=== PATIENT | female | born 1985 | race Caucasian/White ===

== ENCOUNTER → 2018-02-28 23:23 | Outpatient (CLI) | payer MEDICAID, SELFPAY ==
[2018-03-01 01:03] LABS: Chlamydia Trachomatis by PCR Negative (Negative); Neisserai gonorrhoeae by PCR Negative (Negative); Probe Check PASS; Sample Adequacy Control PASS; Specimen Processing Control PASS
[2018-03-03 14:06] LABS: HPV Reflexed? NOT INDICATED
== END ==
PROVIDERS: Visit Provider Obstetrics & Gynecology
DX: Z12.4 Encounter for screening for malignant neoplasm of cervix (principal); Z11.3 Encounter for screening for infections with a predominantly sexual mode of transmission
CPT/HCPCS: 87491; 87591; 88175; G0145

== ENCOUNTER 2018-03-17 06:20 | Day surgery (SDC) | payer MEDICAID, SELFPAY ==
[2018-03-17 06:34] VITALS: BP 120/76; PULSE 83; RESP 16; TEMP 36.8; O2SAT 99; BMI 25.6
--- NOTE | 2018-03-17 07:40 | PCM.DC.D&C ---
Discharge Diet: No Restrictions Discharge Activity: May not drive while taking narcotic pain medications., May Shower, May Take a Tub Bath May resume sexual activity in: 1-2 weeks Call your doctor if you observe: Fever of 101 or Higher, Using more than one pad per hour, Uncontrolled pain Allergies/Adverse Reactions: Allergies No Known Allergies Allergy (Verified 03/16/18 10:33) Medications to take at Discharge Levothyroxine [Synthroid] 50 mcg PO DAILY 12/31/14 Vits [Prenatabs FA] 1 tablet PO DAILY 12/31/14 Acetaminophen/Codeine #3 [Tylenol#3] 1 - 2 tablet PO Q6H PRN PRN 2 Days #10 tablet 03/17/18 The following prescriptions were given: Acetaminophen/Codeine #3 [Tylenol#3] 1 - 2 tablet PO Q6H PRN PRN 2 Days #10 tablet PRN Reason: Mod-Severe Pain (4-10/10) Primary Care Physician: Justus Valdivia MD [Primary Care Provider] - Please Follow Up With: Jenna Browne MD - [phone] When: in 2 wk for postop check up as planned Proposed Discharge Date: 03/17/18
--- NOTE | 2018-03-17 07:55 | POC_PTH ---
PATIENT: JJ WREN [place] [facility] [id number] AGE/SX: 32/F ROOM: RE03/17/[address]: Dr. Jenna Browne MD : [id number] BED: DIS: 03/17/2018 SPEC #: [id number] RECD: 03/17/18 08:42 STATUS: KELLEE BESSIE #: [id number] MADELINE: 03/17/18 07:[address]: Jenna Browne DEPT: SURGICAL PATHOLOGY RECD BY: Cruz Trimble ENTERED: 03/17/18 09:11 SP TYPE: PROD CONC OTHR DR: Dr. Justus Valdivia MD Tissues: Product of conception, NOS Procedures: Surgery Specimen Level IV HEADER OPERATION: Dilation and curettage, suction PRE-OP DIAGNOSIS: Missed TISSUE SUBMITTED: Products of conception MICROSCOPIC DIAGNOSIS Products of conception: [place], gestational endometrium and immature chorionic villi (products of conception). SJ:huang 03/18/18 MICROSCOPIC DESCRIPTION Slides are reviewed. GROSS DESCRIPTION Received in fixative is one container labeled with the patient's name and designated products of conception. The specimen consists of multiple irregular fragments of pink-red soft tissue that in aggregate measure 7 x 6 x 2 cm. No tissue is identified. Asic Engineer tissue is submitted in two cassettes. / SJ:huang 03/17/18 TC:5 CPT: 09775
[2018-03-17] MEDS: Ondansetron 4 MG/2 ML Vial (08:00)
[2018-03-17] MEDS: Lubricating Jelly 60 GM Tube 30 GM TOPICAL (08:03)
--- NOTE | 2018-03-17 08:17 | OP.PCM_ITS ---
Operative Report Date of Procedure: 03/17/18 Date of Procedure: 03/17/18 - suction D and C Pre-Operative Diagnosis: Missed , 9 wk EGA Post-Operative Diagnosis: Same Surgery/Procedure Performed: Suction D and C Anesthesia: Honey Quijano CRNA Estimated Blood Loss (mL): Minimal Complications: none. Drains: None. Red Reyna used to drain bladder prior to case Fluids Replaced: LR Findings: Uterus sounds to 10 cm Parous appearing cervix noted. Products of conception consistent with ultrasound findings collected. PATH: Products of conception, uterine curettings. Narrative Account: After the risks, benefits, alteratives of the procedure were reviewed with the patient informed consent was obtained. The patient was taken to the OR with IV running and placed in dorsal supine position on the operating table. She was given general anesthesia, and then repositioned to the dorsal lithotomy position and was prepped and draped in the usual sterile fashion. The bladder was drained with a red Reyna catheter. A Graves speculum was placed, the cervix identified and the anterior lip grasped with a single toothed tenaculum. The cervix was then easily dilated to allow admission of an 9 mm curved suction curette tip. The suction curette was then placed to the uterine fundus , suction applied, and POC were obtained. After most of the products of conception were removed a sharp curettage was performed and good Crei was noted in all quadrants of the uterus. One final pass was conducted with the suction curette and the remaining products of conception and uterine curettings were removed. A sponge stick was then used to remove any remaining tissue and blood from the upper vagina and cervix . All instruments were then removed from the vagina and cervix. Excellent hemostasis was noted. The patient was awakened from general anesthesia and then transferred to her recovery room bed in stable condition after tolerating the procedure well. Sponge , instrument counts were correct x two. Medications given intraoperatively included: Toradol 30 mg IV x one. For a complete listing of medications given intraoperatively, please see the anesthesia record.
[2018-03-17 08:20] VITALS: BP 103/59; BP 120/76; PULSE 75; RESP 16; TEMP 36.1; O2SAT 95
[2018-03-17 08:25] VITALS: BP 120/76; BP 98/59; PULSE 65; RESP 16; O2SAT 96
[2018-03-17 08:30] VITALS: BP 120/76; BP 95/57; PULSE 62; RESP 16; O2SAT 96
[2018-03-17 08:35] VITALS: BP 110/64; BP 120/76; PULSE 75; RESP 16; TEMP 36.2; O2SAT 100
[2018-03-17 09:39] VITALS: BP 120/76
== END 2018-03-17 09:41 | disposition home or self-care (01) ==
LOC: SDC 06:21
PROVIDERS: Family Provider Family Medicine; PCP Family Medicine; Visit Provider Obstetrics & Gynecology
PROC: (CPT 59820; principal; 2018-03-17 07:45)
DX: O02.1 Missed abortion (principal); E06.9 Thyroiditis, unspecified; Z79.899 Other long term (current) drug therapy
CPT/HCPCS: 01965; 59820; 88305; J7120; J2405

== ENCOUNTER → 2018-08-26 10:22 | Outpatient (CLI) | payer MEDICAID, SELFPAY ==
[2018-08-26 14:15] LABS: Chlamydia Trachomatis by PCR Negative (Negative); Neisserai gonorrhoeae by PCR Negative (Negative); Probe Check PASS; Sample Adequacy Control PASS; Specimen Processing Control PASS
== END ==
PROVIDERS: Visit Provider Obstetrics & Gynecology
DX: Z11.3 Encounter for screening for infections with a predominantly sexual mode of transmission (principal)
CPT/HCPCS: 87491; 87591

== ENCOUNTER → 2018-09-13 10:42 | Outpatient (CLI) | payer MEDICAID, SELFPAY ==
[2018-09-13 13:57] LABS: Absolute Lymphocyte Count 2.39 X10^3/ul (0.83-4.51); Absolute Neutrophil Count 10.3 X10^3/uL (2.0-7.7); Basophil# 0.01 X10^3/uL; Basophil% 0.1 % (0-1); Color, Urine Yellow (Yellow); Eosinophil# 0.06 X10^3/uL; Eosinophils% 0.4 % (0-5); Glucose, Dipstick Normal (Normal); Hematocrit 43.4 % (37-47); Hemoglobin 14.6 g/dl (12.0-15.0); Ketone-Dipstick Negative (Negative); Leukocyte Esterase-Dipstick Negative /ul (Negative); Lymphocyte # 2.39 X10^3/ul (4.0); Lymphocyte % 17.9 % (19-41); Mean Corp Hgb Conc 33.6 g/gl (32-36); Mean Corpuscular Hgb 30.5 pg (27.0-32.0); Mean Corpuscular Volume 90.6 fL (81-99); Mean Platelet Vol. 10.6 fl (6.2-12.0); Monocyte# 0.59 X10^3/uL; Monocyte% 4.4 % (0-10); Neutrophil # 10.28 X10^3/uL (2.7-7.7); Neutrophil % 76.9 % (47-70); Nitrite-Dipstick Negative (Negative); Occult Blood-Urine Negative /ul (Negative); Platelet Count 209 K/mm3 (150-450); Protein-Dipstick Negative (Negative); RBC Distribution Width CV 12.8 % (11.6-14.6); Red Blood Count 4.79 M/mm3 (4.2-5.4); Specific Gravity, Urine 1.005 (1.002-1.030); Urine Bilirubin Dipstick Negative (Negative); Urine Clarity Clear (Clear); Urine Urobilinogen Normal (Normal); White Blood Count 13.4 K/mm3 (4.4-11.0)
[2018-09-13 14:07] LABS: POSITIVE COUNT NO; POSITIVE DIFFERENTIAL NO; POSITIVE MORPHOLOGY NO
[2018-09-13 14:19] LABS: Free T3 2.4 pg/mL (2.18-3.98); T4 Free Direct 1.08 ng/dL (0.76-1.46); Thyroid Stim Hormone (TSH) 1.77 uIU/mL (0.358-3.74)
[2018-09-13 14:59] LABS: HIV - WCH Non-Reactive (Nonreactive); Rubella IgG 64.8 IU/mL
[2018-09-14 10:22] LABS: HEPATITIS B SURFACE AG Negative (Negative); Hep C Antibodies <0.1 s/co ratio (0.0-0.9)
[2018-09-16 01:35] LABS: Prenatal RPR NONREACTIVE (NONREACTIVE)
== END ==
PROVIDERS: Visit Provider Obstetrics & Gynecology
DX: Z34.81 Encounter for supervision of other normal pregnancy, first trimester (principal)
CPT/HCPCS: 36415; 81002; 84439; 84443; 84481; 85025; 86703; 86762; 86803; 87340

== ENCOUNTER → 2018-12-27 09:58 | Outpatient (CLI) | payer MEDICAID, SELFPAY ==
[2018-12-27 11:14] LABS: Hematocrit 40.2 % (37-47); Hemoglobin 13.2 g/dl (12.0-15.0); Mean Corp Hgb Conc 32.8 g/gl (32-36); Mean Corpuscular Volume 94.4 fL (81-99); Mean Platelet Vol. 10.6 fl (6.2-12.0); Platelet Count 164 K/mm3 (150-450); RBC Distribution Width SD 44.7 fl (35.1-43.9); Red Blood Count 4.26 M/mm3 (4.2-5.4)
[2018-12-27 11:15] LABS: Scan Indicated on CBC? Y/N NO
[2018-12-27 11:16] LABS: Glucose Challenge Gest 1H 50g 120 mg/dL (70-140)
== END ==
PROVIDERS: Visit Provider Obstetrics & Gynecology
DX: Z34.83 Encounter for supervision of other normal pregnancy, third trimester (principal)
CPT/HCPCS: 82950; 85027

== ENCOUNTER → 2019-02-15 | Outpatient (CLI) | payer MEDICAID, SELFPAY | END | disposition home or self-care (01) | LOC: LABSPEC 15:48 | PROVIDERS: Visit Provider Obstetrics & Gynecology | DX: Z36.85 Encounter for antenatal screening for Streptococcus B (principal) | CPT/HCPCS: 87081 ==

== ENCOUNTER 2019-03-13 06:54 | Inpatient (IN) | payer MEDICAID, SELFPAY ==
[2019-03-13] MEDS: Lactated Ringers 1,000 ML 50 ML IV ×3 (07:58→16:07)
[2019-03-13] MEDS: Oxytocin 30 units/NS 500 ml 30 UNITS/500 ML IV.SOLN IV (07:58)
[2019-03-13 08:07] LABS: Absolute Lymphocyte Count 2.94 X10^3/ul (0.83-4.51); Absolute Neutrophil Count 8.2 X10^3/uL (2.0-7.7); Basophil# 0.01 X10^3/uL; Basophil% 0.1 % (0-1); Eosinophil# 0.05 X10^3/uL; Eosinophils% 0.4 % (0-5); Hematocrit 40.2 % (37-47); Lymphocyte # 2.94 X10^3/ul (4.0); Lymphocyte % 24.5 % (19-41); Mean Corp Hgb Conc 34.8 g/gl (32-36); Mean Corpuscular Hgb 31.6 pg (27.0-32.0); Mean Corpuscular Volume 90.7 fL (81-99); Mean Platelet Vol. 11.2 fl (6.2-12.0); Monocyte# 0.76 X10^3/uL; Monocyte% 6.3 % (0-10); Neutrophil # 8.17 X10^3/uL (2.7-7.7); POSITIVE COUNT NO; POSITIVE DIFFERENTIAL NO; POSITIVE MORPHOLOGY NO; Platelet Count 162 K/mm3 (150-450); RBC Distribution Width CV 13.4 % (11.6-14.6); Red Blood Count 4.43 M/mm3 (4.2-5.4)
[2019-03-13 08:12] VITALS: BMI 28.3
--- NOTE | 2019-03-13 08:19 | PCM.PN.BLA ---
Progress Note LABOR INDUCTION 39+ wk AB 1 female feeling a few UCs Spont UCs noted at q 5-7 mins A and O NAD AVSS Pitocin at 2 mIU/min EFM: 130-140s avg variability. Accels. category I UCs q 5-7 min A/P: Induction 39+ wk EGA continue pitocin AROM planned.
--- NOTE | 2019-03-13 08:39 | HP.PCM_ITS ---
History and Physical Date of Admission: 03/13/19 34 yo female Ab2 with EDC 03/19/2019 by 13 weeks 2 days Ultrasound, presents to Labor and Delivery. care remarkable for - POLYHYDRAMNIOS 26 cm at 30+ wk EGA, Hypothyroidism, H/O delivery at 33 wk Twin IUP, Prior twin Pertinent Past Medical History: Allergies: No Known Drug Allergies Medications: During - Synthroid 50 mcg tablet; + DHA 28 mg iron- 975 mcg- 200 mg combo pack; Prilosec OTC 20 mg tablet,delayed release; Anusol-HC 2.5 % topical cream with perineal applicator Review of Systems: Non-contributory PHYSICAL EXAMINATION General Appearence: 34 yo female in no acute distress Vital Signs: AF, VSS Heart: RRR without rubs or gallops Lungs: CTA x 2 Breasts: deferred Abdomen: gravid Pelvis: Cervix: Presentation: cephalic Station: Fetus: Size: AGA Movement: present Heart: present Impression /Plan: Intrauterine . Preparations in progress for delivery. See Progress Notes for Changes: 03/13/19 Physician's Signature: Date: 03/13/19 08:38 JJ WREN [id number] REV. 06/04 O
--- NOTE | 2019-03-13 13:15 | PCM.PN.BLA ---
Progress Note LABOR INDUCTION 39 1/7 wk poly feeling some UCs. Some into back AVSS pitocin at 6 mIU/min EFM 130-140s avg variability. Accels noted. Occasional variable with quick return in less than 10 sec UCs q 1-5 mins, irregular CX: 2/75/-2 midposition to sl anterior, softer. A/P: 39 1/7 wk induction poly. AROM now. Continue Pitocin EFM category I tracing, some intermittent tracing with inc FM noted on monitor. Continue Pitocin pain med prn Anticipate
[2019-03-13] MEDS: fentaNYL-bupivacaine (epidural) 100 ML BAG EPIDURAL (15:57)
[2019-03-13] MEDS: Ondansetron 4 MG/2 ML Vial IV (17:26)
[2019-03-13] MEDS: Oxytocin 30 units/NS 500 ml 30 UNITS/500 ML IV.SOLN 334 UNITS IV (19:15)
--- NOTE | 2019-03-13 19:26 | PCM.DCVAG ---
Discharge Diet: No Restrictions Discharge Activity: May Shower, May Take a Tub Bath May resume sexual activity in: 4-6 weeks Additional Activity Instructions:: Nothing in the vagina for 4-6 weeks. You may return to work/school in 6 weeks. Additional Instructions: If you experience any of the following, contact your healthcare provider. Bleeding that soaks a pad every hour for 2 hours Fever 100.4 or higher Unrelieved abdominal pain Problems urinating (including inability to urinate or burning while urinating). Visual changes Severe headache Flu-like symptoms Pain or redness in one of both of your breasts Pain, warmth, tenderness or swelling in your legs, especially the calf area Frequent nausea and vomiting Symptoms of depression or anxiety If you experience any of the following, call 911 or go to the nearest Emergency Room. Chest pain Problems breathing Seizure activity Partial or complete paralysis of a body part, slurred speech, weakness or drooping of the face, or a sudden inability to walk or hold your balance Allergies/Adverse Reactions: Allergies No Known Allergies Allergy (Verified 03/16/18 10:33) Medications to take at Discharge Levothyroxine [Synthroid] 50 mcg PO DAILY 12/31/14 Vits [Prenatabs FA] 1 tablet PO DAILY 12/31/14 Please Follow Up With: Jenna Browne MD - [phone] When: Call to make an appointment with your doctor in 6 weeks. Primary Care Physician: Care Physician,No Primary [Primary Care Provider] - Test Results: Test results from this visit will be discussed in further detail at your follow-up appointment, if applicable. Proposed Discharge Date: 03/15/19
--- NOTE | 2019-03-13 19:27 | DCINST_ITS ---
Discharge Diet: No Restrictions Discharge Activity: May Shower, May Take a Tub Bath May resume sexual activity in: 4-6 weeks Additional Activity Instructions:: Nothing in the vagina for 4-6 weeks. You may return to work/school in 6 weeks. Additional Instructions: If you experience any of the following, contact your healthcare provider. * Bleeding that soaks a pad every hour for 2 hours * Fever 100.4 or higher * Unrelieved abdominal pain * Problems urinating (including inability to urinate or burning while urinating). * Visual changes * Severe headache * Flu-like symptoms * Pain or redness in one of both of your breasts * Pain, warmth, tenderness or swelling in your legs, especially the calf area * Frequent nausea and vomiting * Symptoms of depression or anxiety If you experience any of the following, call 911 or go to the nearest Emergency Room. * Chest pain * Problems breathing * Seizure activity * Partial or complete paralysis of a body part, slurred speech, weakness or drooping of the face, or a sudden inability to walk or hold your balance Allergies/Adverse Reactions: Allergies No Known Allergies Allergy (Verified 03/16/18 10:33) Medications to take at Discharge Levothyroxine [Synthroid] 50 mcg PO DAILY 12/31/14 Vits [Prenatabs FA] 1 tablet PO DAILY 12/31/14 Please Follow Up With: Jenna Browne MD - [phone] When: Call to make an appointment with your doctor in 6 weeks. Primary Care Physician: Care Physician,No Primary [Primary Care Provider] - Test Results: Test results from this visit will be discussed in further detail at your follow- up appointment, if applicable. Proposed Discharge Date: 03/15/19
--- NOTE | 2019-03-13 19:28 | PCM.OPRPT ---
Vaginal Delivery Maternal Presentation: Medically Indicated Induction - polyhydramnios Method of Induction: Pitocin, Amniotomy Amniotic Membrane Rupture Type: Artificial Amniotic Fluid Description: Clear Final [place]EN[place]: 03/19/19 Final HPOENIX Source: US <20 weeks Gestational age: 39 Weeks and 1 Days Date of Procedure: 03/13/19 Pre-Operative Diagnosis: 39 1/7 wk poly Post-Operative Diagnosis: same Surgery/ Procedure Performed: Vacuum Assisted Vaginal Delivery - due to FHR decelerations with pushing Type of Anesthesia: Epidural Description of Procedure: Vacuum assisted vaginal delivery with pull into green zone through 3 pushes, one UC. triana in place. Complete DANIE. +1 station due to FHR decleration with pushing. Vtx delivered easily. No nuchl cord shoulders delivered easily Infant to maternal abdomen with cry and grimace. Cord clamped x two and cut to allow to maternal abdomen, and to isolette prn for stimulation. Ap 8/9 pp exam: 1st deg laceration posterior vagina and at audi-urethra. Hemostatic, no repair placenta delivered by spont expulsion, expression. 3V cord, normal appearing and intact Ray jonah and needle counts correct times two To recovery, stable condition. Presentation: Vertex, DANIE Placental Delivery Description: Spontaneous, Expressed Placenta Disposition: [facility] Cord Vessel Description: 3 Vessels Cord Entanglement: None Drain: Triana to straight drain Estimated Blood Loss: 200 (1 minute): 8 (5 minute): 9 Episiotomy Description: None Laceration: Periurethral Extnsion/lac, Vaginal Extension/lac - hemostatic, no repair., 1st degree Medications given after delivery: IV Pitocin Complications: None
[2019-03-13] MEDS: Oxytocin 30 units/NS 500 ml 30 UNITS/500 ML IV.SOLN 167 UNITS IV (19:45)
[2019-03-13] MEDS: Ibuprofen 600 MG Tablet PO (22:28)
[2019-03-14 00:10] VITALS: BP 110/65; PULSE 80; RESP 18; TEMP 36.9
[2019-03-14 03:05] VITALS: BP 97/53; PULSE 60; RESP 15; TEMP 36.5
[2019-03-14] MEDS: Levothyroxine 50 MCG Tablet PO (06:03)
--- NOTE | 2019-03-14 07:52 | PCM.PN.OB ---
Subjective: PPD#1 Doing well. No concerns voiced. Breast feeding well. Baby boy. Objective: lying in bed, nursing baby. - Physical Exam General: Alert, Oriented x3, Cooperative, No apparent distress HEENT: Atraumatic Neck: Supple Abdomen: Soft - Fundus firm NT inferior to umbilicus Neurological: Cranial nerves II-XII grossly intact Vital Signs Temp Pulse Resp BP 97.7 F L 60 15 97/53 L 03/14/19 03:05 03/14/19 03:05 03/14/19 03:05 03/14/19 03:05 Weight: 77.4 kg Body Mass Index (BMI) 28.3 Intake and Output for Last 24 Hours 03/12/19 03/13/19 03/14/19 23:59 23:59 23:59 Intake Total 4104 / 4104 Output Total 2700 / 2700 800 / 800 Balance 1404 / 1404 -800 / -800 Laboratory Tests Past 24 Hrs 03/13/19 03/13/19 07:40 07:40 WBC 12.0 H RBC 4.43 Hgb 14.0 Hct 40.2 MCV 90.7 MCH 31.6 MCHC 34.8 RDW 13.4 RDW Differential 44.0 H Plt Count 162 MPV 11.2 Immature Gran % (Auto) 0.700 Neut % (Auto) 68.0 Lymph % (Auto) 24.5 [place] % (Auto) 6.3 Eos % (Auto) 0.4 Baso % (Auto) 0.1 Absolute Neuts (auto) 8.2 H Absolute Lymphs (auto) 2.94 Total Counted Not Reportable Blood Type O POSITIVE Antibody Screen NEGATIVE Medical Necessity - Tobacco Use Smoking Status: Never smoker Assessment/Plan PPD#1 Vacuum assisted vaginal delivrey Stable Continue pp care.
[2019-03-14 09:30] VITALS: BP 104/52; PULSE 77; RESP 16; TEMP 36.2
[2019-03-14 13:00] VITALS: BP 111/77; PULSE 84; RESP 16; TEMP 36.3
[2019-03-14] MEDS: Senna/Docusate Sodium 1 Tablet PO (14:29)
[2019-03-14] MEDS: Prenatal Vits Tablet 1 TABLET PO (14:30)
[2019-03-14 16:20] VITALS: BP 109/68; PULSE 75; RESP 16; TEMP 36.5
[2019-03-14 20:01] VITALS: BP 117/77; PULSE 61; RESP 18; TEMP 37; O2SAT 98
[2019-03-15 01:32] VITALS: BP 120/77; PULSE 75; RESP 18; TEMP 36.9
[2019-03-15] MEDS: Levothyroxine 50 MCG Tablet PO (05:57)
--- NOTE | 2019-03-15 07:41 | PCM.PN.OB ---
Subjective: PPD#2 Vaginal delivery Doing well. milk not quite in but baby is nursing well. no concerns voiced. - Physical Exam General: Alert, Oriented x3, Cooperative, No apparent distress HEENT: Atraumatic Neck: Supple Neurological: Cranial nerves II-XII grossly intact Psych/Mental Status: Normal Affect Vital Signs Temp Pulse Resp BP Pulse Ox 98.4 F 75 18 120/77 98 03/15/19 01:32 03/15/19 01:32 03/15/19 01:32 03/15/19 01:32 03/14/19 20:01 Oxygen Delivery Method Room Air Weight: 77.4 kg Body Mass Index (BMI) 28.3 Intake and Output for Last 24 Hours 03/13/19 03/14/19 03/15/19 23:59 23:59 23:59 Intake Total 4104 / 4104 Output Total 2700 / 2700 800 / 800 Balance 1404 / 1404 -800 / -800 Medical Necessity - Tobacco Use Smoking Status: Never smoker Assessment/Plan PPD#2 Vacuum assisted vaginal delivrey Stable . Dischg home today. RTO in 6 wk for pp check, prn sooner.
[2019-03-15 07:48] VITALS: BP 110/69; PULSE 67; RESP 16; TEMP 36.4
== END 2019-03-15 10:30 | disposition home or self-care (01) | DRG 560 ==
PROVIDERS: Admitting Provider Obstetrics & Gynecology; Referring Provider Obstetrics & Gynecology; Visit Provider Obstetrics & Gynecology
DX: O40.3XX0 Polyhydramnios, third trimester, not applicable or unspecified (principal); O76 Abnormality in fetal heart rate and rhythm complicating labor and delivery; O71.4 Obstetric high vaginal laceration alone; O99.284 Endocrine, nutritional and metabolic diseases complicating childbirth; E03.9 Hypothyroidism, unspecified; Z3A.39 39 weeks gestation of pregnancy; Z37.0 Single live birth
CPT/HCPCS: 59025; 59050; 85025; 86850; 86900; 99218; J7120; G0378; J2405

== ENCOUNTER → 2019-04-24 | Outpatient (CLI) | payer MEDICAID, SELFPAY ==
[2019-04-24 16:10] LABS: Free T3 2.3 pg/mL (2.18-3.98); Thyroid Stim Hormone (TSH) 1.66 uIU/mL (0.358-3.74)
== END | disposition home or self-care (01) ==
LOC: LABSPEC 14:17
PROVIDERS: Visit Provider Obstetrics & Gynecology
DX: E03.9 Hypothyroidism, unspecified (principal)
CPT/HCPCS: 84439; 84443; 84481

== ENCOUNTER → 2020-04-16 | Outpatient (CLI) | payer OTHER, SELFPAY ==
[2019-10-16 11:40] VITALS: BMI 28.3
[2020-04-16 14:10] LABS: Free T3 2.5 pg/mL (2.18-3.98); T4 Free Direct 1.01 ng/dL (0.76-1.46)
== END | disposition home or self-care (01) ==
LOC: WOBLAB 10:23
PROVIDERS: Visit Provider Obstetrics & Gynecology
DX: E03.9 Hypothyroidism, unspecified (principal)
CPT/HCPCS: 36415; 84439; 84443; 84481

== ENCOUNTER → 2020-10-31 11:29 | Outpatient (CLI) | payer OTHER, SELFPAY ==
[2019-10-16 11:40] VITALS: BMI 28.3
[2020-10-31 13:18] LABS: Free T3 2.5 pg/mL (2.18-3.98); T4 Free Direct 1.02 ng/dL (0.76-1.46); Thyroid Stim Hormone (TSH) 1.41 uIU/mL (0.358-3.74)
== END ==
PROVIDERS: Visit Provider Student in an Organized Health Care Education/Training Program
DX: E03.9 Hypothyroidism, unspecified (principal)
CPT/HCPCS: 36415; 84439; 84443; 84481

== ENCOUNTER 2022-01-27 16:28 | Outpatient (CLI) | payer OTHER, SELFPAY ==
[2022-02-03 16:27] LABS: HPV APTIMA, High Risk Negative (Negative)
== END 2022-01-27 23:59 | disposition home or self-care (01) ==
LOC: LABSPEC 16:29
PROVIDERS: Visit Provider Student in an Organized Health Care Education/Training Program
DX: Z12.4 Encounter for screening for malignant neoplasm of cervix (principal)
CPT/HCPCS: 87624; 88175; G0145

== ENCOUNTER → 2023-02-10 | Outpatient (CLI) | payer OTHER, SELFPAY ==
[2023-02-10 16:56] LABS: T4 Free Direct 1.03 ng/dL (0.76-1.46); Thyroid Stim Hormone (TSH) 2.27 uIU/mL (0.358-3.74)
== END | disposition home or self-care (01) ==
LOC: WOBLAB 15:58
PROVIDERS: Visit Provider Student in an Organized Health Care Education/Training Program
DX: E03.9 Hypothyroidism, unspecified (principal)
CPT/HCPCS: 36415; 84439; 84443

== ENCOUNTER → 2023-02-18 | Outpatient (CLI) | payer OTHER, SELFPAY ==
--- NOTE | 2023-02-18 14:25 | US_ITS ---
STUDY: ULTRASOUND BREAST - LEFT REASON FOR EXAM: Female, 37 years old. Pain/burning sensation in the upper inner left breast. TECHNIQUE: Axial and longitudinal images of the LEFT breast were performed with a high resolution ultrasound transducer. # OF IMAGES: 20 COMPARISON: Comparison is made with prior mammogram done earlier today. FINDINGS: LEFT Breast: The inner upper quadrant of the left breast was examined with ultrasound. No sonographic abnormality is seen. US/Breast Limited Unilateral IMPRESSION: No sonographic abnormality is seen. ASSESSMENT CATEGORY: BIRADS Category 1: Negative. A letter regarding these results will be sent to the patient by the facility within 30 days. Electronically Signed: Dougie Rivero MD at 11:06 EDT ,
--- NOTE | 2023-02-18 14:25 | BI_ITS ---
MAMMOGRAPHY - BILATERAL DIAGNOSTIC REASON FOR EXAM: Female, 37 years old. Left upper inner breast pain. PERTINENT HISTORY: Non-contributory. TECHNIQUE: Digital bilateral breast lidia (3D mammographic acquisition) in the CC and MLO projections. 2-D mediolateral oblique (MLO) and craniocaudad (CC) views of both breasts were obtained. CAD: Full Field Digital Mammography with Computer Added Detection was performed. COMPARISON: None. Baseline examination. FINDINGS: Breast Composition: The breasts are heterogeneously dense, which may obscure small masses. There are no dominant masses or suspicious calcifications. No other significant abnormalities are identified. BI/DIAG MAMM W/CAD, BILAT IMPRESSION: Negative diagnostic mammogram. Yearly followup mammogram recommended. (A) ASSESSMENT CATEGORY: BIRADS Category 1: Negative. A letter regarding these results will be sent to the patient by the facility within 30 days. Approximately 10% of breast cancers are not detected by mammography. A normal mammogram should not delay biopsy of a clinically suspicious abnormality. Electronically Signed: Dougie Rivero MD at 15:10 EDT ,
== END | disposition home or self-care (01) ==
PROVIDERS: Referring Provider Student in an Organized Health Care Education/Training Program; Visit Provider Student in an Organized Health Care Education/Training Program
DX: N64.4 Mastodynia (principal)
CPT/HCPCS: 76642; 77062; 77066; G0279

== ENCOUNTER → 2024-03-08 | Outpatient (CLI) | payer OTHER, SELFPAY ==
[2024-03-08 16:48] LABS: Absolute Lymphocyte Count 2.77 X10^3/uL (0.83-4.51); Absolute Neutrophil Count 7.2 X10^3/uL (2.0-7.7); Basophil# 0.03 X10^3/uL; Basophil% 0.3 % (0-1); Eosinophil# 0.14 X10^3/uL; Eosinophils% 1.3 % (0-5); Hematocrit 45.1 % (37-47); Hemoglobin 14.8 g/dL (12.0-15.0); Lymphocyte # 2.77 X10^3/ul (0.83-4.51); Mean Corp Hgb Conc 32.8 g/dL (32-36); Mean Corpuscular Hgb 30.1 pg (27.0-32.0); Mean Corpuscular Volume 91.9 fL (81-99); Mean Platelet Vol. 9.5 fl (6.2-12.0); Monocyte# 0.47 X10^3/uL; Monocyte% 4.4 % (0-10); NRBC Flagged by Analyzer 0 % (0-5); Neutrophil % 67.7 % (47-70); Platelet Count 305 K/mm3 (150-450); RBC Distribution Width CV 12.4 % (11.6-14.6); RBC Distribution Width SD 41.7 fl (35.1-43.9); Red Blood Count 4.91 M/mm3 (4.2-5.4); White Blood Count 10.6 K/mm3 (4.4-11.0)
[2024-03-08 17:10] LABS: ALB/GLOB Ratio 1.1 RATIO (0.9-2.4); AST(SGOT) 18 U/L (15-37); Alanine Aminotransfer ALT/SGPT 26 U/L (13-56); Albumin, Serum 3.8 g/dL (3.2-5.0); Alkaline Phosphatase 59 U/L (45-117); Anion Gap 4 (5-15); BUN 17 mg/dL (7-18); BUN/Creat Ratio 20.1 RATIO (10-20); Calcium,Total 9.3 mg/dL (8.5-10.1); Chloride 107 mmol/L (98-107); Cholesterol 191 mg/dL (200); Creatinine, Serum 0.85 mg/dL (0.55-1.02); EST Glomerular Filtration Rate 79 mL/min (>60); Est Glom Filt Rate - Afr Amer 96 mL/min (>60); Globulin 3.6 g/dL (2.2-4.2); Glucose 94 mg/dL (74-106); High Density Lipoprotein 66 mg/dL; Potassium 3.8 mmol/L (3.5-5.1); Protein, Total 7.4 g/dL (6.4-8.2); Sodium Level 137 mmol/L (136-145); Thyroid Stim Hormone (TSH) 1.27 uIU/mL (0.358-3.74); Triglycerides 81 mg/dL; Very Low Density Lipoprotein 16 mg/dL (5-40)
== END | disposition home or self-care (01) ==
LOC: BIMLAB 15:48
PROVIDERS: PCP Internal Medicine; Visit Provider Internal Medicine
DX: Z00.00 Encounter for general adult medical examination without abnormal findings (principal); E03.9 Hypothyroidism, unspecified
CPT/HCPCS: 36415; 80053; 80061; 84443; 85025

== ENCOUNTER → 2024-04-18 | Outpatient (CLI) | payer OTHER, SELFPAY ==
--- NOTE | 2024-04-18 16:17 | BI_ITS ---
MAMMOGRAPHY - BILATERAL SCREENING REASON FOR EXAM: Female, 39 years old. Routine annual screening examination. PERTINENT HISTORY: Non-contributory. TECHNIQUE: Digital bilateral breast steve (3D mammographic acquisition) in the CC and MLO projections. 2-D mediolateral oblique (MLO) and craniocaudad (CC) views of both breasts were obtained. CAD: Full Field Digital Mammography with Computer Added Detection was performed. COMPARISON: Comparison is made with prior study February 18, 2023. FINDINGS: Breast Composition: The breasts are heterogeneously dense, which may obscure small masses. There are no dominant masses or suspicious calcifications. No other significant abnormalities are identified. There has been no significant change since the prior study. BI/SCRN MAMM (CAD)W/STEVE BILAT IMPRESSION: Stable bilateral screening mammogram. Yearly follow-up mammogram recommended. (A) ASSESSMENT CATEGORY: BIRADS Category 1: Negative. A letter regarding these results will be sent to the patient by the facility within 30 days. Approximately 10% of breast cancers are not detected by mammography. A normal mammogram should not delay biopsy of a clinically suspicious abnormality. [id number] Electronically Signed: Dougie Rivero MD at 8:24 EDT ,
== END | disposition home or self-care (01) ==
LOC: OPBI 04-19 06:45
PROVIDERS: PCP Internal Medicine; Referring Provider Obstetrics & Gynecology; Visit Provider Obstetrics & Gynecology
DX: Z12.31 Encounter for screening mammogram for malignant neoplasm of breast (principal)
CPT/HCPCS: 77063; 77067

== ENCOUNTER → 2025-04-20 | Outpatient (CLI) | payer OTHER, SELFPAY ==
--- NOTE | 2025-04-20 08:30 | BI_ITS ---
EXAM: SCRN MAMM (CAD)W/STEVE BILAT 04/20/2025 CLINICAL HISTORY: F, Age 40 y/o, SCREEN FOR BREAST CANCER TECHNIQUE: Bilateral screening digital breast tomosynthesis with 2D and 3D images. Computer aided detection. COMPARISON: Prior exam(s) dated 04/18/2024, 02/18/2023. FINDINGS: TISSUE DENSITY: The breast tissue is composed of scattered area of fibroglandular density. Bilateral Breast Mammographic Findings: No significant masses, calcifications or other abnormalities are identified. BI/SCRN MAMM (CAD)W/STEVE BILAT IMPRESSION: Right Breast: BIRADS 1 NEGATIVE. Left Breast: BIRADS 1 NEGATIVE. OVERALL FINAL ASSESSMENT: BIRADS 1 NEGATIVE. RECOMMENDATION: Routine annual follow-up in 1 Year A letter with findings and recommendations will be mailed to the patient. Reading Location: [id number]
--- OUTSIDE RECORDS SUMMARY | 2025-04-20 08:45 | XMS RPT_ITS | CCD ---
Author Organization [facility] Inform ion Partnership [facility] Care Team Providers Care Cat Scanner Operator Name Role Phone Oral Valdivia MD Primary Care Provider Melia Cadet Referring Unavailable Melia Cadet Attending Unavailable Flaquito White Primary Care Unavailable Medications Completed/Discontinued Medications Medication Drug Class(es) Dates Sig (Normalized) Sig (Original) amoxicillin 500 mg oral capsule (3 sources) Penicillin-class Antibacterial Start: 10-16-2019 End: 10-26-2019 take 1000 mg by mouth twice daily Amoxicillin Discontinued 1000 MG PO TWICE A DAY 40 10 October 16, 2019 1:00am October 26, 2019 1:08am benzonatate 100 mg oral capsule (1 source) Non-narcotic Antitussive Start: 12-30-2023 take 100-200 mg by mouth every eight hours as needed benzonatate (TESSALON PERLES) 100 mg capsule Take 1-2 capsules by mouth three times a day as needed for cough. 30 capsule 0 12/30/2023 Active Comment on above: Take 1-2 capsules by mouth three times a day as needed for cough. levonorgestrel 0.272536 mg/hr intrauterine system (1 source) Progestin, Progestin-containin g Intrauterine Device Start: 08-18-2016 levonorgestrel (MIRENA) 20 mcg/24 hr (5 years) IUD 1 Each by INTRAUTERINE route one time only. 0 08/18/2016 Active Comment on above: 1 Each by INTRAUTERI NE route one time only. levothyroxine sodium 0.05 mg oral tablet (4 sources) l-Thyroxine Start: 12-31-2014 take 1 tablet by mouth once daily before breakfast levothyroxine (SYNTHROID) 50 mcg tablet Indications: Hypothyroidism, unspecified type Take 1 tablet by mouth daily before breakfast. 0 08/18/2016 Active Comment on above: Take 1 tablet by jarocho th daily before breakfast. Vit,Qxhj44-Ghlm-Hbiu c (3 sources) Start: 12-31-2014 End: 10-16-2019 take 1 tablet by mouth once daily Vit,Jzen58-Egph-Ypp ic Discontinued 1 TABLET PO DAILY December 31, 2014 5:23pm October 16, 2019 12:38pm Start: 12-31-2014 End: 10-16-2019 take 1 tablet by mouth once daily Vit,Xrgm41-Irya-Flcnc Discontinued 1 TABLET PO DAILY December 31, 2014 1:00am October 16, 2019 12:38pm Problems Active Problems Problem Classification Problem Date Documented Da te Episodic/Chronic Gastrointestinal hemorrhage (1 source) Blood in stool 09-18-2010 Episodic Other screening for suspected conditions (not mental disorders or infectious disease) (1 source) Encounter for screening mammogram for malignant neoplasm of breast; Translations: [Encounter for screening mammogram for malignant neoplasm of breast] Onset: 04-16-2025 Episodic Other upper respiratory infections (4 sources) Streptococcal sore throat; Translations: [Streptococcal pharyngitis] 10-16-2019 Episodic Past or Other Problems Problem Classification Problem Date Documented Da te Episodic/Chronic Other injuries and conditions due to external causes (1 source) Injury of free lower limb; Translations: [Unspecified injury of unspecified lower leg, initial encounter] Onset: 12-30-2010 12-30-2010 Episodic Sprains and strains (1 source) Injury of lower extremity; Translations: [Sprain and strain of unspecified site of knee and leg] Onset: 04-14-2010 04-14-2010 Episodic Results Test Name Value Interpretation Reference Range [facility] Laboratory - Chemistry and C hemistry - challengeOrdered By: Dr. Monge on 02-10-2023 Free T4 [Mass/Vol] 1.03 ng/dL 0.76-1.46 [facility] No Panel InformationOrdered By: Dr. Monge on 02-10-2023 Thyroid Stimulating Hormone (TSH) 2.27 uIU/mL 0.358-3.74 [facility] Laboratory - Chemistry and C hemistry - challengeon 11-19-2021 Free T4 [Mass/Vol] 1.11 ng/dL 0.76-1.46 [facility] Work Phone: No Panel Informationon 11-19 Thyroid Stimulating Hormone (TSH) 1.25 uIU/mL 0.358-3.74 [facility] Work Phone: Encounters Encounter Date Encounter Type Care Provider Facility Start: 04-20-2025 ambulatory Melia Kim lity:[facility] Start: 12-30-2023 End: 12-30-2023 ambulatory ORAL Lee [facility] Facility:[facility] Start: 12-30-2023 End: 12-30-2023 ambulatory Kwabena Keith BOYERPRINTER'S ASSISTANT Work Phone: Telemedicine Comment on above: Viral URI with cough (Primary Dx) Start: 12-30-2023 End: 12-30-2023 Telemedicine consultation with patient Kwabena Yin PRINTER'S ASSISTANT Work Phone: [facility] Start: 02-18-2023 End: 02-18-2023 ambulatory [facility] Work Phone: Start: 02-18-2023 End: 02-18-2023 Patient encounter procedure [facility]-Outpatient Breast Imaging Start: 02-10-2023 End: 02-10-2023 ambulatory [facility] Work Phone: Start: 02-10-2023 End: 02-10-2023 Patient encounter procedure [facility]-Laboratory, [place] [employer] Start: 01-27-2022 End: 01-27-2022 Patient encounter procedure [facility]Laboratory, Specimen Start: 11-19-2021 End: 11-19-2021 Patient encounter procedure [facility], [place] [employer] Procedures Date Procedure Procedure Detail Performing Clinician Start: 02-18-2023 Bilateral mammography Start: 02-18-2023 Ultrasonography of breast Plan of Treatment Date Care Activity Detail Author Start: 02-02-2029 Urine microalbumin profile DTa P,Tdap,Td Vaccine (2 - Td or Tdap) [facility] Start: 11-01-2023 Depression Assessment Depression Ass essment [facility] Start: 07-02-2023 Covid-19 Vaccine (2022- season) Covid-19 Vaccine ( season) [facility] Start: 07-02-2023 Influenza vaccination Influenza Vacc ine (#1) [facility] Start: 2014 Screening for malign ant neoplasm of cervix HPV Testing [facility] Start: 06-17-2012 Screening for malign ant neoplasm of cervix Pap Testing [facility] Start: 2002 Hepatitis C screening Hepatitis C Sc reening [facility] Start: 2002 HIV screening HIV Screening [facility] Start: 1984 Hepatitis B Vaccine (1 of 3 - 3-dose series) Hepatitis B Vaccine (1 of 3 - 3-dose series) [facility] Immunizations Immunization Date Immunization Notes Care Provider Fa maye 08-20-2021 influenza virus vaccine, unspecified formulation Kwabena Yin APRN.CNP Work Phone: [facility] 09-03-2018 influenza, injectabl e, quadrivalent, contains preservative Kwabena Yin APRN.PRINTER'S ASSISTANT Work Phone: [facility] 08-16-2018 Influenza virus vaccine [facility] 08-22-2014 Influenza virus vaccine [facility] Payers Date Payer Category Payer Self-pay [id number] 2014 Unknown [id number] Unknown [id number] Social History Date Type Detail Facility [facility]: 10[facility]16-[facility] Start: 1985 Sex Assigned At Female [facility] Start: 06-14-2022 Alcohol intake Current drinke r of alcohol (finding) [facility] Start: 1985 Sex Assigned At Not on file [facility] [place] Gender identity Not on file [facility] in Progress note 12-30-2023 Note Date & Type Note Facility 12-30-2023 Note HNO ID: [id number] Author: KWABENA YIN APRN.PRINTER'S ASSISTANT Service: ? Author Type: Nurse Practitioner Type: Progress Notes Filed: 12/30/2023 14:53 Note Text: Telemedicine Visit - Distance Health Virtual Visit Note Patient seen on Onit Video Visit platform. Location of patient: [place] I have communicated my name and active licensure. The patient's identity and physical location were verified at the time of this visit. Either the patient or their legal senior patient account representative has been informed of the risks and benefits of -- and alternatives to -- treatment through a remote evaluation and consents to proceed with the evaluation remotely. History of Present Illness Jj Wren is a 38 year old female who presents for the past 3 days with symptoms that are:stable. Symptoms include: Positive for Chills/Sweats, Cough, Nasal congestion, Rhinorrhea, Headache, Sore throat, and Fatigue, Negative for Fever, SOB, GIBSON, Face pain/pressure, Otalgia, Nausea, Emesis, and Diarrhea Oral intake: Adequate Tobacco use: No Sick contacts: Unknown; recent stomach flu in household; Recent travel: Denies OTC meds/remedies that patient has tried: ibuprofen and water - minimal relief; Patient denies current or . PAST MEDICAL HISTORY Diagnosis Date blood in stool Diarrhea PAST SURGICAL HISTORY Procedure Laterality Date EXTRACTION, ERUPTED TOOTH OR EXPOSED ROOT (ELEVATION AND/OR FORCEPS REMOVAL) Mullens teeth FAMILY HISTORY Problem Relation Age of Onset None Mother None Father Diabetes Maternal Grandmother Alzheimer's Disease Maternal Grandfather Social History Tobacco Use Smoking status: Never Substance Use Topics Alcohol use: Yes Comment: ocass Drug use: No Current Outpatient Medications Medication Sig levonorgestrel (MIRENA) 20 mcg/24 hr (5 years) IUD 1 Each by INTRAUTERINE route one time only. levothyroxine (SYNTHROID) 50 mcg tablet Take 1 tablet by mouth daily before breakfast. No current facility-administered medications for this visit. ALLERGIES No Known Allergies Video Exam (Examination performed via Video enabled technology) General appearance: Alert, oriented, pleasant, in NAD :Yes Ill appearing :No Lethargic appearing :No Eyes: Sclera clear :Yes Conjunctiva without erythema :Yes Ears: Tragus / outer ear tenderness by self palpation :No Oropharynx: moist mucous membranes Frontal sinus tenderness by self palpation;No Maxillary sinus tenderness by self palpation :No Tender cervical adenopathy by self palpation :No Respiratory distress :No Coughing noted :Yes Audible wheezing noted :No ASSESSMENT/PLAN: 1. Viral URI with cough - ICD9: 465.9, ICD10: J06.9 - Discussed viral etiology and rationale for treatment - Symptomatic treatment with prn analgesia - Supportive care with fluids and rest - Benzonatate as directed - Follow up with PCP (or available in-person care) in 1 week if symptoms persist or sooner if symptoms worsen - Red flags discussed for need for in person care - All questions answered Kwabena Yin APRN.CNP If you let us know who your primary care provider is, we will send them a notification of today?s visit through our electronic medical records system. Since not all providers have access to our notifications, we strongly encourage you to share the following record of today?s visit with your primary care provider at your next visit. This will help in providing you the best care. If you do not have an established Primary Care physician and would like to continue care with a [facility] Virtual Primary Care physician, please ask your provider to place a Establish Primary Care order. Use [employer] to manage your care, wherever you are, 24/05, on your mobile device or computer. [employer] connects you to [employer] so you can access all your health information in one place and also schedule and request virtual appointments with primary care providers. [facility] Instructions 12-30-2023 Patient Instructions Note Date & Type Note Facility 12-30-2023 Instructions Kwabena Yin APRN.CNP - 12/30/2023 2:53 PM EST Viral Upper Respiratory Infection Supportive Therapies: - Plenty of fluids - Plenty of REST - Steam, humidifier - Expect slow improvement over the next week - Use salt water gargles, cough drops or throat sprays to relieve throat discomfort - Use saline nose drops or spray to help ease congestion Immediate medical attention for: - Fever higher than 102 F (38.9 C), not lowered by acetaminophen and/or ibuprofen - Sudden and severe pain in the face and head - Trouble seeing or seeing double - Trouble thinking clearly - Swelling or redness around one or both eyes - A stiff neck - Chest pains or difficulty breathing - Drooling, difficulty swallowing - Follow up with PCP (or available in-person care) in 1 week if symptoms persist or sooner if symptoms worsen documented in this encounter [facility] History of Present illness Narrative 12-30-2023 Kwabena Yin APRN.JEFFERY - 12/30/2023 2:24 PM EST Note Date & Type Note Facility 12-30-2023 History of Presen t illness Narrative Telemedicine Visit - Distance Health Virtual Visit Note Patient seen on Onit Video Visit platform. Location of patient: [place] I have communicated my name and active licensure. The patient's identity and physical location were verified at the time of this visit. Either the patient or their legal senior patient account representative has been informed of the risks and benefits of -- and alternatives to -- treatment through a remote evaluation and consents to proceed with the evaluation remotely. History of Present Illness Jj Wren is a 38 year old female who presents for the past 3 days with symptoms that are:stable. Symptoms include: Positive for Chills/Sweats, Cough, Nasal congestion, Rhinorrhea, Headache, Sore throat, and Fatigue, Negative for Fever, SOB, GIBSON, Face pain/pressure, Otalgia, Nausea, Emesis, and Diarrhea Oral intake: Adequate Tobacco use: No Sick contacts: Unknown; recent stomach flu in household; Recent travel: Denies OTC meds/remedies that patient has tried: ibuprofen and water - minimal relief; Patient denies current or . PAST MEDICAL HISTORY Diagnosis Date blood in stool Diarrhea PAST SURGICAL HISTORY Procedure Laterality Date EXTRACTION, ERUPTED TOOTH OR EXPOSED ROOT (ELEVATION AND/OR FORCEPS REMOVAL) Mullens teeth FAMILY HISTORY Problem Relation Age of Onset None Mother None Father Diabetes Maternal Grandmother Alzheimer's Disease Maternal Grandfather Social History Tobacco Use Smoking status: Never Substance Use Topics Alcohol use: Yes Comment: ocass Drug use: No Current Outpatient Medications Medication Sig levonorgestrel (MIRENA) 20 mcg/24 hr (5 years) IUD 1 Each by INTRAUTERINE route one time only. levothyroxine (SYNTHROID) 50 mcg tablet Take 1 tablet by mouth daily before breakfast. No current facility-administered medications for this visit. ALLERGIES No Known Allergies Video Exam (Examination performed via Video enabled technology) General appearance: Alert, oriented, pleasant, in NAD :Yes Ill appearing :No Lethargic appearing :No Eyes: Sclera clear :Yes Conjunctiva without erythema :Yes Ears: Tragus / outer ear tenderness by self palpation :No Oropharynx: moist mucous membranes Frontal sinus tenderness by self palpation;No Maxillary sinus tenderness by self palpation :No Tender cervical adenopathy by self palpation :No Respiratory distress :No Coughing noted :Yes Audible wheezing noted :No ASSESSMENT/PLAN: 1. Viral URI with cough - ICD9: 465.9, ICD10: J06.9 - Discussed viral etiology and rationale for treatment - Symptomatic treatment with prn analgesia - Supportive care with fluids and rest - Benzonatate as directed - Follow up with PCP (or available in-person care) in 1 week if symptoms persist or sooner if symptoms worsen - Red flags discussed for need for in person care - All questions answered Kwabena Yin APRN.CNP If you let us know who your primary care provider is, we will send them a notification of today s visit through our electronic medical records system. Since not all providers have access to our notifications, we strongly encourage you to share the following record of today s visit with your primary care provider at your next visit. This will help in providing you the best care. If you do not have an established Primary Care physician and would like to continue care with a [facility] Virtual Primary Care physician, please ask your provider to place a Establish Primary Care order. Use [facility] [employer] to manage your care, wherever you are, 24/05, on your mobile device or computer. [facility] connects you to [employer] so you can access all your health information in one place and also schedule and request virtual appointments with primary care providers. documented in this encounter [facility] Evaluation note Note Date & Type Note Facility Evaluation note No assessment information availa [facility] Work Phone: Evaluation note Note Date & Type Note Facility Evaluation note Diagnosis Viral URI with cough- Primary Acute upper respiratory infections of unspecified site documented in this encounter [facility] Advance Directives No Advanced Directives Records Found Advance Directive Response Recorded Date/ Time Living Will No March 13, 2019 8 :01am Power of Accounting Software Specialist No March 13, 2019 8:01am Chief Complaint and Reason for Visit Chief Complaint MASTODYNIA Summary Purpose Family History No Family History Records Found Additional Source Comments Goals (unrecognized section and content) Goals may be documented in a n alternate sectionGoals may be documented in an alternate sectionGoals may be documented in an alternate section Care Teams (unrecognized sec tion and content) Team Status: Active Member Role Status Dates No Primary Care Physician Family Provider Active No Primary Care Physician Primary Care Provider Active Team Status: Inactive Member Role Status Dates No Primary Care Physician Primary Care Provider Active Dr. An Monge , DO Attending Provider Active Team Status: Inactive Member Role Status Dates No Primary Care Physician Primary Care Provider Active Dr. An Monge DO Attending Provider, Referrin g Provider Active Cat Scanner Operator Relationship Specialty Start Date End Date Oral Valdivia MD [address] [place] [address] PCP - General 05/24/07 Source Comments (unrecognize d section and content) In the event this informatio n is protected by the Federal Confidentiality of Alcohol and Drug Abuse Patient Records regulations: The Federal rules restrict any use of the information to criminally investigate or prosecute any alcohol or drug abuse patient.[facility] Reason for Visit (unrecogniz ed section and content) Reason Comments Upper Respiratory Infection INFORMATION SOURCE (unrecogn ized section and content) DATE CREATED AUTHOR 01/02/2024 [facility] DATE CREATED AUTHOR 'S KASANDRA ATION 04/18/2025 [facility] FOR RECORDS PERTAINING TO PATIENTS WHO ARE OR HAVE BEEN ENROLLED IN A CHEMICAL DEPENDENCY/SUBSTANCEABUSE PROGRAM, SOME INFORMATION MAY BE OMITTED. This clinical summary was aggregated from multiple sources. Caution should be exercised in using it in the provision of clinical care. This summary normalizes information from multiple sources, and as a consequence, information in this document may materially change the coding, format and clinical context of patient data. In addition, data may be omitted in some cases. CLINICAL DECISIONS SHOULD BE BASED ON THE PRIMARY CLINICAL RECORDS. [facility]. provides no warranty or guarantee of the accuracy or completeness of information in this document.
== END | disposition home or self-care (01) ==
LOC: OPBI 08:25
PROVIDERS: PCP Internal Medicine; Referring Provider Obstetrics & Gynecology; Visit Provider Obstetrics & Gynecology
DX: Z12.31 Encounter for screening mammogram for malignant neoplasm of breast (principal)
CPT/HCPCS: 77063; 77067

== ENCOUNTER → 2025-06-01 | Outpatient (CLI) | payer OTHER, SELFPAY ==
[2025-06-01 12:27] LABS: Hematocrit 41.9 % (37-47); Hemoglobin 14.2 g/dL (12.0-15.0); Immature Granulocytes Count 0.010 X10^3/uL (0.0-0.0); Mean Corp Hgb Conc 33.9 g/dL (32-36); Mean Corpuscular Volume 90.9 fL (81-99); Mean Platelet Vol. 10.2 fl (6.2-12.0); NRBC Flagged by Analyzer 0 % (0-5); Platelet Count 237 K/mm3 (150-450); RBC Distribution Width CV 12.2 % (11.6-14.6); RBC Distribution Width SD 40.4 fl (35.1-43.9); Red Blood Count 4.61 M/mm3 (4.2-5.4); White Blood Count 8.0 K/mm3 (4.4-11.0)
[2025-06-01 14:12] LABS: AST(SGOT) 24 U/L (<=31); Alanine Aminotransfer ALT/SGPT 23 U/L (<=34); Albumin, Serum 4.1 g/dL (3.5-5.0); Alkaline Phosphatase 60 U/L (35-104); Anion Gap 12 (5-15); BUN 14 mg/dL (4-19); BUN/Creat Ratio 14.9 RATIO (10-20); Calcium,Total 9.3 mg/dL (7.6-11.0); Carbon Dioxide 22.4 mmol/L (21.0-32.0); Chloride 104 mmol/L (98-108); Cholesterol 182 mg/dL (<=200); Globulin 2.5 g/dL (2.2-4.2); Glucose 92 mg/dL (70-99); Low Density Lipoprotein Calc. 99 mg/dL; Potassium 3.7 mmol/L (3.3-5.1); Triglycerides 126 mg/dL; Very Low Density Lipoprotein 25 mg/dL (5-40); cholesterol:hdl ratio screen 3.12
== END | disposition home or self-care (01) ==
LOC: BIMLAB 07:55
PROVIDERS: PCP Internal Medicine; Referring Provider Internal Medicine; Visit Provider Internal Medicine
DX: Z00.00 Encounter for general adult medical examination without abnormal findings (principal); E03.9 Hypothyroidism, unspecified
CPT/HCPCS: 36415; 80053; 80061; 84443; 85025; 86376